=== PATIENT | female | born 1980 | race African-American/Black ===

== ENCOUNTER 2018-08-13 20:43 | Emergency (ER) | payer OTHER ==
[~2018-08-13] VITALS: Ht 160 cm; Wt 89.8 kg
[2018-08-13 20:45] VITALS: BP 162/99
[2018-08-13 21:08] LABS: BILIRUBIN,URINE NEGATIVE (NEG); CLARITY,URINE CLEAR; COLOR,URINE YELLOW; NITRITE,URINE NEGATIVE (NEG); PROTEIN,URINE NEGATIVE (NEG-TRACE)
[2018-08-13 21:13] LABS: BACTERIA,URINE MODERATE /HPF (0-FEW); RBC,URINE OCC /HPF (0-2); SQUAMOUS EPITHELIAL CELL,UR MANY /LPF; WBC,URINE OCC /HPF (0-4)
[2018-08-13] MEDS ORDERED: ONDANSETRON ODT 4 MG TAB.RAPDIS. PO ONE (21:30)
[2018-08-13] MEDS ORDERED: IV NORMAL SALINE 1000ML BAG 1,000 ML IV ONE (22:30)
[2018-08-13] MEDS ORDERED: ONDANSETRON PF 4 MG/2 ML VIAL. IV ONE (22:30)
[2018-08-13] MEDS ORDERED: ONDA4TAB12 PO (23:04)
--- NOTE | 2018-08-13 23:05 | PHYS DOC ---
Past Medical History Past Medical History: Other Additional Past Medical Histor: tubal Past Surgical History: Hysterectomy, Tubal ligation Additional Past Surgical Histo: breast reduction, ablation Alcohol Use: None Drug Use: None Adult General Chief Complaint Chief Complaint: NAUSEA/VOMITING/DIARRHA HPI HPI Patient is a 38 year old female who presents with nausea and one episode of emesis that started today. The patient's daughter is also a patient in the emergency room with similar symptoms. She states that her son-in-law initially had the same symptoms but is feeling better. The patient states that her daughter is getting IV fluids and medicine for nausea. The patient is upset that she is in [facility]. Review of Systems Review of Systems Constitutional: Denies fever or chills [] Respiratory: Denies cough or shortness of breath [] Cardiovascular: No additional information not addressed in HPI [] GI: See history of present illness : Denies dysuria or hematuria [] Musculoskeletal: Denies back pain or joint pain [] Integument: Denies rash or skin lesions [] Neurologic: Denies headache, focal weakness or sensory changes [] Endocrine: Denies polyuria or polydipsia [] All other systems were reviewed and found to be within normal limits, except as documented in this note. Current Medications Current Medications Current Medications Medications (Trade) Dose Ordered Sig/[place] Start Time Stop Time Status Last Admin Dose Admin Ondansetron HCl (Zofran Odt) 4 mg 1X ONCE 08/13/18 21:30 08/13/18 21:31 DC 08/13/18 21:23 4 MG Ondansetron HCl (Zofran) 4 mg 1X ONCE 08/13/18 22:30 08/13/18 22:32 DC 08/13/18 22:19 4 MG Sodium Chloride 1,000 ml @ 1,000 mls/hr 1X ONCE 08/13/18 22:30 08/13/18 23:13 DC 08/13/18 22:17 1,000 MLS/HR Allergies Allergies Allergies Coded Allergies Type Severity Reaction Last Updated Verified Sulfa (Sulfonamide Antibiotics) Allergy Intermediate 08/13/18 No latex Allergy Intermediate rash 08/13/18 Yes Physical Exam Physical Exam Constitutional: Well developed, well nourished, no acute distress, non-toxic appearance. [] Cardiovascular:Heart rate regular rhythm, no murmur [] Lungs & Thorax: Bilateral breath sounds clear to auscultation [] Abdomen: Bowel sounds normal, soft, no tenderness, no masses, no pulsatile masses. [] Skin: Warm, dry, no erythema, no rash. [] Back: No tenderness, no CVA tenderness. [] Extremities: No tenderness, no cyanosis, no clubbing, ROM intact, no edema. [] Neurologic: Alert and oriented X 3, normal motor function, normal sensory function, no focal deficits noted. [] Psychologic: Affect normal, judgement normal, mood normal. [] Current Patient Data Vital Signs Vital Signs Date Time Temp Pulse Resp B/P (MAP) Pulse Ox O2 Delivery O2 Flow Rate FiO2 08/13/18 20:45 99.3 107 19 162/99 (120) 99 Room Air 99.3 Lab Values Laboratory Tests Test 08/13/18 20:50 Urine Collection Type Unknown Urine Color Yellow Urine Clarity Clear Urine pH 6.0 Urine Specific [place] >=1.030 Urine Protein Negative mg/dL (NEG-TRACE) Urine Glucose (UA) Negative mg/dL (NEG) Urine Ketones (Stick) Trace mg/dL (NEG) Urine Blood Negative (NEG) Urine Nitrite Negative (NEG) Urine Bilirubin Negative (NEG) Urine Urobilinogen Dipstick 1.0 mg/dL (0.2 mg/dL) Urine Leukocyte Esterase Negative (NEG) Urine RBC Occ /HPF (0-2) Urine WBC Occ /HPF (0-4) Urine Squamous Epithelial Cells Many /LPF Urine Bacteria Moderate /HPF (0-FEW) Urine Mucus Marked /LPF EKG EKG [] Radiology/Procedures Radiology/Procedures [] Course & Med Decision Making Course & Med Decision Making Pertinent Labs and Imaging studies reviewed. (See chart for details) []The patient was given Zofran ODT. She complained to the nurse and stated that she wanted IV fluids. The patient had multiple complaints about not having white paper on the bed and thinking that the room was dirty. She was moved to the acute side and was given IV fluids. The patient's symptoms resolved and she was discharged home. Dragon Disclaimer Dragon Disclaimer This electronic medical record was generated, in whole or in part, using a voice recognition dictation system. Departure Departure Impression: Primary Impression: Nausea & vomiting Disposition: HOME, SELF-CARE Condition: STABLE Referrals: HEATHER HAYWARD MD (PCP) Patient Instructions: Nausea and Vomiting Additional Instructions: Take the medication as directed. Increase fluids and rest. Increase your diet slowly. Follow-up with your primary care provider if not improving in 4 days or return to the emergency department if worsening. Scripts Ondansetron (ONDANSETRON ODT) 4 Mg Tab.rapdis 1 TAB PO PRN Q6-8HRS for nausea, #16 TAB Prov: RADHA DIAZ APRN 08/13/18 RADHA DIAZ APRN Aug 13, 2018 23:05
== END 2018-08-13 23:12 | disposition home or self-care (01) ==
LOC: ER 20:43
DX: R11.2 Nausea with vomiting, unspecified (principal); R19.7 Diarrhea, unspecified; Z90.710 Acquired absence of both cervix and uterus; Z98.51 Tubal ligation status; Z88.2 Allergy status to sulfonamides; Z91.040 Latex allergy status
CPT/HCPCS: 81001; 87086; 96361; 96374; 99283; J2405; J7030; Q0162

== ENCOUNTER 2018-10-03 02:28 | Emergency (ER) | payer OTHER ==
[~2018-10-03] VITALS: Ht 160 cm; Wt 88.5 kg
[~2018-10-03 02:28] MED LIST: ONDA4TAB12 PO
[2018-10-03] MEDS ORDERED: KETOROLAC 30 MG/ML VIAL. IV ONE (03:00)
[2018-10-03] MEDS ORDERED: FAMOTIDINE 20 MG/2 ML VIAL IVP ONE (03:00)
[2018-10-03] MEDS ORDERED: IV NORMAL SALINE 1000ML BAG 1,000 ML IV ONE (03:00)
[2018-10-03 03:04] LABS: BILIRUBIN,URINE NEGATIVE (NEG); CLARITY,URINE CLEAR; COLOR,URINE YELLOW; NITRITE,URINE NEGATIVE (NEG); PH,URINE 5.5; PROTEIN,URINE NEGATIVE (NEG-TRACE); UROBILINOGEN,URINE 0.2 mg/dL (0.2 mg/dL)
--- NOTE | 2018-10-03 03:07 | PHYS DOC ---
Past Medical History Past Medical History: Other Additional Past Medical Histor: tubal Past Surgical History: Hysterectomy, Tubal ligation Additional Past Surgical Histo: breast reduction, ablation Alcohol Use: None Drug Use: None Adult General Chief Complaint Chief Complaint: ABDOMINAL PAIN HPI HPI Patient is a 38 year old female presents with upper abdominal pain. Patient states that she was sleeping this evening when the pain woke her up. It is located in her right upper quadrant and radiates into epigastric region as well as into her back. She describes it as a "wrenching" sensation. She tried to throw up to relieve her pain, but it did not help. Palpation of her stomach makes her pain worse. Nothing improves her pain. She denies any nausea, vomiting, diarrhea, constipation, chest pain or shortness of breath. Review of Systems Review of Systems Constitutional: Denies fever or chills [] Eyes: Denies change redness or eye pain [] HENT: Denies nasal congestion or sore throat [] Respiratory: Denies cough or shortness of breath [] Cardiovascular: Denies chest pain or shortness of breath [] GI: Reports abdominal pain, denies nausea, vomiting, or diarrhea [] : Denies dysuria or hematuria [] Musculoskeletal: Reports back pain, denies joint pain [] Integument: Denies rash or skin lesions [] Neurologic: Denies headache or focal weakness [] Complete systems were reviewed and found to be within normal limits, except as documented in this note. Current Medications Current Medications Current Medications Medications (Trade) Dose Ordered Sig/[place] Start Time Stop Time Status Last Admin Dose Admin Famotidine (Pepcid Vial) 20 mg 1X ONCE 10/03/18 03:00 10/03/18 03:01 DC 10/03/18 03:30 20 MG Ketorolac Tromethamine (Toradol 30mg Vial) 15 mg 1X ONCE 10/03/18 03:00 10/03/18 03:01 DC 10/03/18 03:30 15 MG Metronidazole (Flagyl) 500 mg 1X ONCE 10/03/18 04:30 10/03/18 04:31 DC 10/03/18 04:40 500 MG Sodium Chloride 1,000 ml @ 1,000 mls/hr 1X ONCE 10/03/18 03:00 10/03/18 03:59 DC 10/03/18 03:31 1,000 MLS/HR Allergies Allergies Allergies Coded Allergies Type Severity Reaction Last Updated Verified Sulfa (Sulfonamide Antibiotics) Allergy Intermediate 08/13/18 No latex Allergy Intermediate rash 08/13/18 Yes Physical Exam Physical Exam Constitutional: Well developed, well nourished, mild distress, non-toxic appearance. [] HENT: Normocephalic, atraumatic, bilateral external ears normal, nose normal. [] Eyes: EOMI, conjunctiva normal, no discharge. [] Neck: Normal range of motion, no tenderness, supple. [] Cardiovascular:Heart rate regular rhythm, no murmur [] Lungs & Thorax: Bilateral breath sounds clear to auscultation [] Abdomen: Bowel sounds normal, soft, epigastric and RUQ tenderness, mercer's sign present, no rovsing, psoas, or mcburney's signs. [] Skin: Warm, dry, no erythema, no rash. [] Back: No tenderness, no CVA tenderness. [] Extremities: No cyanosis, no clubbing, ROM intact, no edema. [] Neurologic: Alert and oriented X 3, normal motor function, no focal deficits noted. [] Psychologic: Affect normal, mood normal. [] Current Patient Data Vital Signs Vital Signs Date Time Temp Pulse Resp B/P (MAP) Pulse Ox O2 Delivery O2 Flow Rate FiO2 10/03/18 02:40 98.6 74 18 176/112 (133) 99 Room Air 98.6 Lab Values Laboratory Tests Test 10/03/18 02:30 10/03/18 03:18 Urine Collection Type Unknown Urine Color Yellow Urine Clarity Clear Urine pH 5.5 Urine Specific [place] 1.025 Urine Protein Negative mg/dL (NEG-TRACE) Urine Glucose (UA) Negative mg/dL (NEG) Urine Ketones (Stick) Negative mg/dL (NEG) Urine Blood Negative (NEG) Urine Nitrite Negative (NEG) Urine Bilirubin Negative (NEG) Urine Urobilinogen Dipstick 0.2 mg/dL (0.2 mg/dL) Urine Leukocyte Esterase Moderate (NEG) Urine RBC Occ /HPF (0-2) Urine WBC 5-10 /HPF (0-4) Urine Squamous Epithelial Cells Mod /LPF Urine Bacteria 0 /HPF (0-FEW) Urine Mucus Mod /LPF Urine Trichomonas Present White Blood Count 9.5 x10^3/uL (4.0-11.0) Red Blood Count 4.59 x10^6/uL (3.50-5.40) Hemoglobin 13.4 g/dL (12.0-15.5) Hematocrit 39.8 % (36.0-47.0) Mean Corpuscular Volume 87 fL (79-100) Mean Corpuscular Hemoglobin 29 pg (25-35) Mean Corpuscular Hemoglobin Concent 34 g/dL (31-37) Red Cell Distribution Width 13.3 % (11.5-14.5) Platelet Count 276 x10^3/uL (140-400) Neutrophils (%) (Auto) 52 % (31-73) Lymphocytes (%) (Auto) 39 % (24-48) Monocytes (%) (Auto) 6 % (0-9) Eosinophils (%) (Auto) 2 % (0-3) Basophils (%) (Auto) 1 % (0-3) Neutrophils # (Auto) 4.9 x10^3uL (1.8-7.7) Lymphocytes # (Auto) 3.7 x10^3/uL (1.0-4.8) Monocytes # (Auto) 0.6 x10^3/uL (0.0-1.1) Eosinophils # (Auto) 0.2 x10^3/uL (0.0-0.7) Basophils # (Auto) 0.1 x10^3/uL (0.0-0.2) Sodium Level 138 mmol/L (136-145) Potassium Level 4.3 mmol/L (3.5-5.1) Chloride Level 99 mmol/L (98-107) Carbon Dioxide Level 26 mmol/L (21-32) Anion Gap 13 (6-14) Blood Urea Nitrogen 17 mg/dL (7-20) Creatinine 0.9 mg/dL (0.6-1.0) Estimated GFR (Cockcroft-Gault) 83.9 BUN/Creatinine Ratio 19 (6-20) Glucose Level 156 mg/dL (70-99) H Calcium Level 9.6 mg/dL (8.5-10.1) Magnesium Level 1.9 mg/dL (1.8-2.4) Total Bilirubin 0.4 mg/dL (0.2-1.0) Aspartate Amino Transferase (AST) 20 U/L (15-37) Alanine Aminotransferase (ALT) 23 U/L (14-59) Alkaline Phosphatase 67 U/L (46-116) Total Protein 7.6 g/dL (6.4-8.2) Albumin 3.7 g/dL (3.4-5.0) Albumin/Globulin Ratio 0.9 (1.0-1.7) L Lipase 153 U/L (73-393) Laboratory Tests 10/03/18 03:18 Laboratory Tests 10/03/18 03:18 EKG EKG [] Radiology/Procedures Radiology/Procedures [] Course & Med Decision Making Course & Med Decision Making 38 year old female presented to the Emergency Department due to abdominal pain. This pain woke her up from her sleep and she denies having any pain like this before. She denied any chest pain or shortness of breath. Patient tender in epigastric region and RUQ. Positive Leora's sign. Labs and Imaging were obtained and posted to chart. Symptomatic treatment provided with interval improvement. Ultrasound showed cholelithiasis. Provided patient with GI doctor to follow-up with. Prescriptions provided. Patient stable for discharge with outpatient follow-up with PCP. Discussed findings and plan with patient and family, who acknowledge understanding and agreement. Dragon Disclaimer Dragon Disclaimer This electronic medical record was generated, in whole or in part, using a voice recognition dictation system. Departure Departure Impression: Primary Impression: Cholelithiasis Additional Impression: Trichomonal cystitis Disposition: HOME, SELF-CARE Condition: STABLE Referrals: HEATHER HAYWARD MD (PCP) LUCHO RAM MD Patient Instructions: Cholelithiasis, [id number], Trichomoniasis-Brief Scripts Metronidazole (FLAGYL) 500 Mg Tablet 500 MG PO BID, #14 TAB Prov: MAICOL MCKENZIE DO 10/03/18 Hydrocodone/Apap 5-325 (NORCO 5-325 TABLET) 1 Each Tablet 0.5 TAB PO PRN Q6HRS PRN for PAIN, #10 TAB 0 Refills Prov: MAICOL MCKENZIE DO 10/03/18 Ondansetron (ONDANSETRON ODT) 4 Mg Tab.rapdis 1 TAB PO PRN Q6-8HRS PRN for NAUSEA, #16 TAB Prov: MAICOL MCKENZIE DO 10/03/18 Problem Qualifiers Primary Impression: Cholelithiasis Cholelithiasis location: gallbladder Cholecystitis presence: without cholecystitis Biliary obstruction: without biliary obstruction Qualified Codes: K80.20 - Calculus of gallbladder without cholecystitis without obstruction MAICOL MCKENZIE DO Oct 03, 2018 03:07
[2018-10-03 03:10] LABS: BACTERIA,URINE 0 /HPF (0-FEW); RBC,URINE OCC /HPF (0-2); SQUAMOUS EPITHELIAL CELL,UR MOD /LPF; TRICHOMONAS,URINE PRESENT
[2018-10-03 03:27] LABS: BASO # 0.1 x10^3/uL (0.0-0.2); BASO % 1 % (0-3); EOS # 0.2 x10^3/uL (0.0-0.7); EOS % 2 % (0-3); HEMATOCRIT 39.8 % (36.0-47.0); HEMOGLOBIN 13.4 g/dL (12.0-15.5); LYMPH # 3.7 x10^3/uL (1.0-4.8); LYMPH % 39 % (24-48); MEAN CORPUSCULAR HEMOGLOBIN 29 pg (25-35); MEAN CORPUSCULAR HGB CONC 34 g/dL (31-37); MEAN CORPUSCULAR VOLUME 87 fL (79-100); MONO # 0.6 x10^3/uL (0.0-1.1); MONO % 6 % (0-9); NEUT # 4.9 x10^3uL (1.8-7.7); NEUT % 52 % (31-73); PLATELET COUNT 276 x10^3/uL (140-400); RED BLOOD COUNT 4.59 x10^6/uL (3.50-5.40); RED CELL DISTRIBUTION WIDTH 13.3 % (11.5-14.5); WHITE BLOOD COUNT 9.5 x10^3/uL (4.0-11.0)
[2018-10-03 03:41] LABS: CALCIUM 9.6 mg/dL (8.5-10.1); CREATININE 0.9 mg/dL (0.6-1.0); GFR 83.9; POTASSIUM 4.3 mmol/L (3.5-5.1)
[2018-10-03 03:45] LABS: ALBUMIN 3.7 g/dL (3.4-5.0); ALBUMIN/GLOBULIN RATIO 0.9 (1.0-1.7); MAGNESIUM 1.9 mg/dL (1.8-2.4); TOTAL BILIRUBIN 0.4 mg/dL (0.2-1.0); TOTAL PROTEIN 7.6 g/dL (6.4-8.2)
--- NOTE | 2018-10-03 04:00 | RAD ---
CLINICAL HISTORY: ACUTE RUQ PAIN COMPARISON: None available. TECHNIQUE: Limited ultrasound examination of the right upper quadrant of the abdomen was performed FINDINGS: Liver: The liver measures 16.6 cm in length in the right mid clavicular line. Increased echogenicity of the liver, likely hepatic steatosis.. There is no focal abnormality of the liver. Portal and hepatic venous flow is confirmed with normal waveforms. Gallbladder/Biliary: A few shadowing gallstones are seen within the gallbladder. The gallbladder wall measures 4 mm.. There is no pain with direct transducer pressure over the gallbladder.The common bile duct measures 1.5 cm. The right kidney measures 12.3 cm in bipolar length. No focal renal lesion. No hydronephrosis. There is no free fluid in the subhepatic space. IMPRESSION: 1. Hepatic steatosis 2. Cholelithiasis with mild gallbladder wall thickening. Given the lack of pericholecystic fluid and negative sonographic Garcia's sign, this is nonspecific. In the appropriate clinical scenario however may be seen with acute cholecystitis. Electronically signed by: Steve Grant MD (10/03/2018 3:57 AM) [id number]
[2018-10-03 04:17] VITALS: BP 142/86
[2018-10-03] MEDS ORDERED: ONDA4TAB12 PO (04:29)
[2018-10-03] MEDS ORDERED: METR500T PO (04:29)
[2018-10-03] MEDS ORDERED: HYDR-3164 PO (04:29)
[2018-10-03] MEDS ORDERED: metroNIDAZOLE 500 MG TABLET PO ONE (04:30)
== END 2018-10-03 04:45 | disposition home or self-care (01) ==
LOC: ER 02:28
DX: K80.20 Calculus of gallbladder without cholecystitis without obstruction (principal); A59.03 Trichomonal cystitis and urethritis; Z90.710 Acquired absence of both cervix and uterus; Z98.51 Tubal ligation status; Z88.2 Allergy status to sulfonamides; Z91.040 Latex allergy status
CPT/HCPCS: 36415; 76705; 80053; 81001; 83690; 83735; 85025; 87086; 96374; 96375; 99284; J1885; J3490; J7030

== ENCOUNTER → 2020-09-06 | Outpatient (CLI) | payer OTHER ==
[~2020-09-06] MED LIST changes: +HYDR-3164 PO; +METR500T PO
== END ==
LOC: LAB 10:38
PROVIDERS: ATTEND Surgery
DX: Z01.812 Encounter for preprocedural laboratory examination (principal); L72.0 Epidermal cyst; R22.2 Localized swelling, mass and lump, trunk; Z20.822 Contact with and (suspected) exposure to COVID-19
CPT/HCPCS: U0003